=== PATIENT | female | born 1965 ===

== ENCOUNTER 2025-03-07 17:10 | Outpatient (RCR) | payer BC, SELFPAY | END 2025-03-07 23:59 | disposition home or self-care (01) | LOC: RPT 17:10 | PROVIDERS: ATTENDING PHYSICIAN Family Medicine | DX: S06.9X9S Unspecified intracranial injury with loss of consciousness of unspecified duration, sequela (principal); S06.9X9D Unspecified intracranial injury with loss of consciousness of unspecified duration, subsequent encounter (principal); M25.561 Pain in right knee; M54.2 Cervicalgia; Z73.6 Limitation of activities due to disability; R42 Dizziness and giddiness; M25.562 Pain in left knee; V03.10XD Pedestrian on foot injured in collision with car, pick-up truck or van in traffic accident, subsequent encounter | CPT/HCPCS: 97010; 97110; 97112; 97140; 97163; 97167; 97530 ==

== ENCOUNTER 2025-04-02 13:45 | Outpatient (RCR) | payer BC, SELFPAY | END 2025-04-02 23:59 | disposition home or self-care (01) | LOC: RPT 13:45 | PROVIDERS: ATTENDING PHYSICIAN Nurse Practitioner Family | DX: S06.9X9S Unspecified intracranial injury with loss of consciousness of unspecified duration, sequela (principal); M25.561 Pain in right knee; M54.2 Cervicalgia; Z73.6 Limitation of activities due to disability; R42 Dizziness and giddiness; M25.562 Pain in left knee; V03.10XD Pedestrian on foot injured in collision with car, pick-up truck or van in traffic accident, subsequent encounter; S06.9X9D Unspecified intracranial injury with loss of consciousness of unspecified duration, subsequent encounter | CPT/HCPCS: 97010; 97110; 97112; 97140; 97530 ==

== ENCOUNTER 2025-04-25 17:53 | Outpatient (RCR) | payer BC, SELFPAY | END 2025-04-25 23:59 | disposition home or self-care (01) | LOC: RPT 17:53 | PROVIDERS: ATTENDING PHYSICIAN Nurse Practitioner Family | DX: S06.9X9D Unspecified intracranial injury with loss of consciousness of unspecified duration, subsequent encounter (principal); M25.561 Pain in right knee; M54.2 Cervicalgia; Z73.6 Limitation of activities due to disability; R42 Dizziness and giddiness; M25.562 Pain in left knee; V03.10XD Pedestrian on foot injured in collision with car, pick-up truck or van in traffic accident, subsequent encounter; S06.9X9S Unspecified intracranial injury with loss of consciousness of unspecified duration, sequela | CPT/HCPCS: 97010; 97110; 97112; 97140; 97530 ==